=== PATIENT | female | born 1995 | race Caucasian/White ===

== ENCOUNTER 2017-08-02 00:25 | Emergency (ER) | payer OTHER ==
[~2017-08-02] VITALS: Ht 167.6 cm; Wt 58.5 kg
[2017-08-02 00:33] VITALS: Ht 167.6 cm; Wt 58.5 kg
[2017-08-02 02:15] VITALS: BP 132/84
== END 2017-08-02 02:15 | disposition home or self-care (01) ==
LOC: ED 00:25
DX: F41.9 Anxiety disorder, unspecified (principal); F43.10 Post-traumatic stress disorder, unspecified; M79.7 Fibromyalgia; Z88.8 Allergy status to other drugs, medicaments and biological substances

== ENCOUNTER 2017-08-15 00:18 | Emergency (ER) | payer OTHER ==
[~2017-08-15] VITALS: Ht 167.6 cm; Wt 72.3 kg
[2017-08-15 01:01] LABS: BASOPHIL % 0.7 % (0-2); PLATELET COUNT 249 x10^3mcL (130-400); RED CELL DISTRIBUTION WIDTH 11.6 % (11.5-14.5)
[2017-08-15 01:10] LABS: CALCIUM 8.7 mg/dL (8.5-10.1); CARBON DIOXIDE 28.2 mmol/L (21-32); CHLORIDE SERUM 106 mmol/L (98-107); CREATININE SERUM 0.8 mg/dL (0.6-1.0); GFR1 > 60 mL/min; GLUCOSE SERUM 87 mg/dL (74-106); POTASSIUM SERUM 3.6 mmol/L (3.5-5.1); SODIUM SERUM 143 mmol/L (136-145)
[2017-08-15 01:16] LABS: ALBUMIN 3.9 g/dL (3.4-5.0); ALKALINE PHOSPHATASE 51 U/L (46-116); ALT/SGPT 16 U/L (14-59); AST/SGOT 16 U/L (15-37); BILIRUBIN TOTAL 0.49 mg/dL (0.20-1.00); TOTAL PROTEIN, SERUM 7.5 g/dL (6.4-8.2)
[2017-08-15 02:41] LABS: AMPHETAMINE QUAL UR NONE DETECTED (NEG <=1000)
[2017-08-15 12:18] VITALS: BP 123/77
== END 2017-08-15 12:18 ==
LOC: ED 00:18
PROVIDERS: Emergency Medicine
DX: R45.851 Suicidal ideations (principal); M79.7 Fibromyalgia; Z88.8 Allergy status to other drugs, medicaments and biological substances
CPT/HCPCS: 36415; G0480

== ENCOUNTER 2018-02-12 23:24 | Emergency (ER) | payer OTHER ==
[~2018-02-12] VITALS: Ht 167.6 cm; Wt 77.6 kg
[2018-02-12 23:27] VITALS: Ht 167.6 cm; Wt 77.6 kg
[2018-02-13 00:27] VITALS: BP 150/96
== END 2018-02-13 00:27 | disposition home or self-care (01) ==
LOC: ED 23:24
DX: F41.9 Anxiety disorder, unspecified (principal); G43.909 Migraine, unspecified, not intractable, without status migrainosus; M79.7 Fibromyalgia; Z88.8 Allergy status to other drugs, medicaments and biological substances; Z91.018 Allergy to other foods